=== PATIENT | female | born 1990 | race Two or more races ===

== ENCOUNTER 2017-04-29 18:38 | Observation (INO) | payer MEDICAID, OTHER ==
[2017-04-29 20:36] LABS: Urine Bilirubin Negative (Negative); Urine Blood Negative /uL (Negative); Urine Color Yellow (Yellow); Urine Glucose Normal (Normal); Urine Hyaline Cast FEW /lpf (0 - 2); Urine Ketone Negative (Negative); Urine Mucus FEW (None Seen); Urine Nitrite Negative (Negative); Urine RBC 3 /hpf (0 - 4); Urine Squamous Epithelial Cell FEW /hpf (<5); Urine Urobilinogen Normal (Negative)
[2017-04-29] MEDS ORDERED: PREN-96 PO (20:40)
== END 2017-04-29 20:21 | disposition home or self-care (01) | DRG 566 ==
LOC: LDRP 18:38
PROVIDERS: ADMIT Specialist; ATTEND Specialist
DX: O26.892 Other specified pregnancy related conditions, second trimester (principal); N89.8 Other specified noninflammatory disorders of vagina; Z3A.26 26 weeks gestation of pregnancy; Z87.891 Personal history of nicotine dependence
CPT/HCPCS: 59025; 81001; 81002; 87070; G0378

== ENCOUNTER 2017-06-09 17:20 | Observation (INO) | payer MEDICAID ==
[~2017-06-09 17:20] MED LIST: PREN-96 PO
== END 2017-06-09 19:09 | disposition home or self-care (01) | DRG 955 ==
LOC: LDRP 17:20
PROVIDERS: ADMIT Obstetrics & Gynecology; ATTEND Obstetrics & Gynecology
DX: O26.899 Other specified pregnancy related conditions, unspecified trimester (principal); R10.9 Unspecified abdominal pain; Z3A.00 Weeks of gestation of pregnancy not specified
CPT/HCPCS: 59025; 81002; G0378

== ENCOUNTER 2017-07-07 08:40 | Observation (INO) | payer MEDICAID ==
[~2017-07-07] VITALS: Ht 157.5 cm; Wt 85.3 kg
[2017-07-07] MEDS ORDERED: ACETAMINOPHEN 325 MG TAB PO ONE (09:30)
== END 2017-07-07 10:05 | disposition home or self-care (01) | DRG 566 ==
LOC: LDRP 08:40
PROVIDERS: ADMIT Specialist; ATTEND Specialist
DX: O26.893 Other specified pregnancy related conditions, third trimester (principal); R51 Headache; R11.0 Nausea; R10.9 Unspecified abdominal pain; Z3A.36 36 weeks gestation of pregnancy
CPT/HCPCS: 59025; 81002; G0378